=== PATIENT | female | born 1980 | race Asian ===

== ENCOUNTER 2025-01-14 17:43 | Emergency (ER) | payer BC, MEDICAID ==
[~2025-01-14] VITALS: Ht 162.6 cm; Wt 92.7 kg
[2025-01-14 17:52] VITALS: BP 130/79; PULSE 93; O2SAT 98
[2025-01-14] MEDS ORDERED: dexamethasone sod phosphate 10mg/ml inj PO STA (21:06)
--- NOTE | 2025-01-14 21:13 | Physician Documentation ---
History of Present Illness ~ Chief Complaint: Weakness Stated Complaint: MULTIPLE MEDICAL COMPLAINTS Time Seen by MD: 20:56 OK to notify your PCP?: Yes Primary Medical Doctor: NONE HPI This is a 44-year-old female with history of migraines who presents with approximately five months of intermittent weakness in her hands and lower extremities, patient reports symptoms currently not present though she had an episode earlier today, patient reports additionally she was experiencing a mi graine with nausea and light sensitivity. Patient reports migraine is in her typical pattern, patient reports she does have history of migraines though is currently not prescribed any medications for this. Medication Reconciliation Allergies: Coded Allergies: Penicillins (Verified Allergy, Unknown, 01/14/25) codeine (Verified Allergy, Unknown, 01/14/25) latex (Verified Allergy, Unknown, 01/14/25) Past Medical History Past Medical History: No Pertinent History Past Surgical History: no surgical history Alcohol Use: None Drug Use: none Lives In: Home Occupation: employed Review of Systems ROS Headache and intermittent extremity weakness as stated above in the HPI, otherwise all systems are reviewed and negative. Physical Exam Vital Signs: Temperature: 97.6, Source: Temporal, Heart Rate: 93, Respiratory Rate: 18, BP: 130/79, Pulse Oximetry: 98, Weight: 92.650 Physical Exam VITALS: Reviewed and as above. GENERAL: Alert and oriented, nontoxic appearing, no apparent distress. HEENT: PERRLA, EOMI RESPIRATORY: No increased work of breathing, no respiratory distress, speaking in full clear sentences NEURO: Normal muscle strength and tone with 5/5 strength in all extremities, speech clear, normal gait, no pronator drift Progress Results/Orders Results/Orders Completed Orders - GERARD MIGUEL Cbc/Diff (01/14/25 21:06) BMP (01/14/25 21:06) Ketorolac Trometh 15mg/Ml Vial (Toradol (01/14/25 21:10) Diphenhydramine Inj (Benadryl Inj.) (01/14/25 21:10) Prochlorperazine Inj (Compazine Inj) (01/14/25 21:10) Normal Saline 1000ml (Sodium Chloride 10 (01/14/25 21:10) Dexamethasone Tablet (Decadron Tablet) (01/14/25 21:15) Dexamethasone 6mg Tablet (Dexamethasone (01/14/25 21:15) Medications Received in ER Medications (Trade) Dose Ordered Sig/Rosalio Route PRN Reason Start Time Stop Time Status Last Admin Dose Admin (Toradol injection) 15 mg ONCE ONCE IV 01/14/25 21:10 01/14/25 21:11 DC 01/14/25 21:42 15 MG (Benadryl inj.) 25 mg ONCE ONCE IV 01/14/25 21:10 01/14/25 21:11 DC 01/14/25 21:41 25 MG (Compazine inj) 10 mg ONCE ONCE IM 01/14/25 21:10 01/14/25 21:11 DC 01/14/25 21:28 10 MG (sodium chloride 1000ml IV soln) 1,000 ml ONCE ONCE IVB 01/14/25 21:10 01/14/25 21:11 DC 01/14/25 21:40 1,000 ML (Decadron tablet) 4 mg ONCE STAT PO 01/14/25 21:15 01/14/25 21:16 DC 01/14/25 21:28 4 MG (Dexamethasone 6mg tablet) 6 mg ONCE STAT PO 01/14/25 21:15 01/14/25 21:16 DC 01/14/25 21:28 6 MG Vital Signs 01/14/25 01/14/25 01/14/25 17:52 21:42 22:32 Temp 97.6 97.6 Pulse 93 Resp 18 15 B/P (MAP) 130/79 Pulse Ox 98 Laboratory Tests Test 01/14/25 21:17 White Blood Count 13.1 H Red Blood Count 4.49 Hemoglobin 12.6 Hematocrit 38.7 Mean Corpuscular Volume 86.2 Mean Corpuscular Hemoglobin 28.0 Mean Corpuscular Hemoglobin Concent 32.5 L Red Cell Distribution Width 13.6 Platelet Count 369 Mean Platelet Volume 7.1 L Neutrophils (%) (Auto) 72.3 Lymphocytes (%) (Auto) 18.6 L Monocytes (%) (Auto) 7.1 Eosinophils (%) (Auto) 1.3 Basophils (%) (Auto) 0.7 Neutrophils # (Auto) 9.5 H Lymphocytes # (Auto) 2.4 Monocytes # (Auto) 0.9 Eosinophils # (Auto) 0.2 Basophils # (Auto) 0.1 CBC Comment Sodium Level 141 Potassium Level 3.3 L Chloride Level 106 Carbon Dioxide Level 27.0 Anion Gap 8 Blood Urea Nitrogen 7 Creatinine 0.77 Estimated GFR/1.73 m2 81 BUN/Creatinine Ratio 9.1 L Glucose Level 99 Calcium Level 8.2 L Albumin 3.4 Chemistry Comments Medical Decision Making Findings This 44-year-old female presented with concern for approximately five months of intermittent weakness to her extremities though no weakness was demonstrated on physical exam and patient did not report symptoms currently present. Lab work did not demonstrate evidence of significant metabolic or electrolyte disturbance, patient was very mildly hypokalemic and hypocalcemic which patient was instructed to follow up with primary care provider for lab recheck in the next week. Patient did report migraine headache that is in the pattern of her previous migraine symptoms which she was treated for with adequate decrease in symptoms. It is reassuring headache is not: a first headache or change from normal headache, of sudden onset, described as thunderclap or worst ever, worse with exertion, was not a result of significant trauma and does not have associated fever and/or nuchal rigidity to suggest meningitis or focal motor and/or sensory deficits to suggest CVA, intracranial hemorrhage, or mass. Patient is otherwise well appearing, non-toxic, and well hydrated.Physical exam benign. Vital signs stable without evidence hypoxia, room air SpO2 of 98% interpreted as normal and adequate, non-tachypneic, non-tachycardic, normotensive. I have considered, but have a low clinical suspicion for: CVA, TIA, intracranial hemorrhage, meningitis, mass/tumor, referred dental/TMJ pain, sinus pain/infection, trigeminal neuralgia, herpes zoster, or glaucoma. Patient was appropriate for outpatient follow up and careful return to care precautions were discussed with the patient who verbalized understanding. Differential Dx:Considerations: Include: anemia, CVA, dehydration, electrolyte imbalance, Guillain-[place], hypoglycemia, hypotension, hypovolemia, myasathenia gravis, pulmonary embolus, TIA, other (Meningitis, intracranial hemorrhage, glaucoma, complex migraine) Departure Disposition: 01 HOME / SELF CARE / HOMELESS Impression: Primary Impression: Headache Qualified Codes: R51.9 - Headache, unspecified Additional Impressions: Hypokalemia Hypocalcemia Condition: Improved Discharge Instructions: Hypocalcemia, Adult, Hypokalemia, Migraine Headache Additional Instructions: The cause of your intermittent weakness is unknown though it was reassuring that it was not present on exam today, you had mildly low calcium and potassium readings on your lab work follow up with your primary care provider for recheck of your labs in the next few days consider increasing intake of potassium and calcium rich foods. It was reassuring or headache resolved with the medications received in the emergency department. You may use ibuprofen and Tylenol as needed for return of headache as directed by the [id number] packaging. Try to get in with your primary care provider in the next few days otherwise follow up as scheduled with your primary care provider for further workup of yo ur intermittent weakness and management of your migraine symptoms. Please return to the emergency department for any new or worsening concerning symptoms. Referrals: NO PRIMARY CARE PROVIDER (PCP) Education Educated: Patient, Family Educated regarding: diagnosis, treatment, prognosis, need for follow up Signature Scribe Signature: No scribe Attestation: The note accurately reflects work and decisions made by me.EDWARD Swanson 01/15/25 01:35 GERARD MIGUEL January 14, 2025 21:13
[2025-01-14 21:28] LABS: BASOPHILS # (AUTO) 0.1 X10'3 (0-0.2); BASOPHILS % (AUTO) 0.7 % (0-1); EOSINOPHILS # (AUTO) 0.2 X10'3 (0-0.9); EOSINOPHILS % (AUTO) 1.3 % (0-6); HEMATOCRIT 38.7 % (35.0-45.0); HEMOGLOBIN 12.6 g/dl (12.0-16.0); LYMPHOCYTES # (AUTO) 2.4 X10'3 (1.1-4.8); LYMPHOCYTES % (AUTO) 18.6 % (21-51); MEAN CORPUSCULAR HGB CONC 32.5 g/dL (33.0-36.5); MEAN CORPUSCULAR VOLUME 86.2 FL (78-98); MEAN PLATELET VOLUME 7.1 FL (7.4-10.4); MONOCYTES # (AUTO) 0.9 X10'3 (0-0.9); MONOCYTES % (AUTO) 7.1 % (2-12); NEUTROPHILS # (AUTO) 9.5 X10'3 (1.8-7.7); NEUTROPHILS % (AUTO) 72.3 % (42-75); PLATELET COUNT 369 X10'3 (140-440); RED BLOOD COUNT 4.49 X10'6 (4.20-5.60); RED CELL DISTRIBUTION WIDTH 13.6 % (11.5-14.5); WHITE BLOOD COUNT 13.1 X10'3 (4.5-11.0)
[2025-01-14] MEDS: proCHLORperazine 10 MG/2 ml inj IM ONE (21:28)
[2025-01-14] MEDS: DEXAMETHASONE 6 MG TABLET PO STA (21:28)
[2025-01-14] MEDS: dexamethasone 4mg tablet PO STA (21:28)
[2025-01-14 21:39] LABS: ALBUMIN 3.4 G/DL (3.4-5.0); ANION GAP 8 (8-16); BLOOD UREA NITROGEN 7 MG/DL (7-18); BUN/CREATININE RATIO 9.1 (10.0-20.0); CALCIUM 8.2 MG/DL (8.5-10.1); CHLORIDE 106 MMOL/L (99-107); CREATININE 0.77 MG/DL (0.40-0.90); GLUCOSE 99 MG/DL (70-104); POTASSIUM 3.3 MMOL/L (3.5-5.1); SODIUM 141 MMOL/L (135-145); eCRCL 81 ML/MIN; eGFR 81 ML/MIN
[2025-01-14] MEDS: normal saline 1000ML IV soln IVB ONE (21:40)
[2025-01-14] MEDS: diphenhydrAMINE 50 mg/ml inj IV ONE (21:41)
[2025-01-14 21:42] VITALS: RESP 15
[2025-01-14] MEDS: ketorolac trometh 15mg/ml vial 15 MG/ML ML IV ONE (21:42)
[2025-01-14 22:32] VITALS: TEMP 97.6
== END 2025-01-14 22:33 | disposition home or self-care (01) ==
LOC: ER 17:44
DX: G43.909 Migraine, unspecified, not intractable, without status migrainosus (principal); E83.51 Hypocalcemia; E87.6 Hypokalemia; Z88.0 Allergy status to penicillin; Z88.5 Allergy status to narcotic agent
CPT/HCPCS: 36415; 80048; 85025; 96361; 96372; 96374; 96375; 99284; J0780; J1200; J1885; J7030; J8540